=== PATIENT | male | born 1995 ===

== ENCOUNTER 2024-10-02 07:49 | Outpatient (CLI) | payer OTHER, SELFPAY | END 2024-10-02 07:50 | disposition home or self-care (01) | PROVIDERS: PCP Nurse Practitioner Family; Visit Provider Nurse Practitioner Family | DX: R25.2 Cramp and spasm (principal); Z13.220 Encounter for screening for lipoid disorders | CPT/HCPCS: 80053; 80061; 83735 ==

== ENCOUNTER 2025-04-16 15:03 | Outpatient (CLI) | payer OTHER, SELFPAY ==
--- NOTE | 2025-04-16 15:00 | CRLHL7_ITS ---
For Patients: As a result of the Cures Act, medical imaging exams and procedure reports are released immediately into your electronic medical record. You may view this report before your referring provider. If you have questions, please contact your health care provider. Indication: NASAL CONGESTION, HISTORY OF NASAL POLYPS Technique: Performed without IV contrast Comparison: None available Findings: Frontal sinuses: Mild mucosal thickening is present within the inferior frontal sinuses. Ethmoid sinuses: Moderate opacification of 1 of the posterior left ethmoid air cells. Clear right ethmoid sinus. Maxillary sinuses: Mucous retention cyst within the medial right maxillary sinus measures 1.4 cm. Mucosal thickening with heterotopic ossification in the inferior right maxillary sinus. The right-sided sinus drainage pathway is clear. Mucosal thickening and mucous retention cysts throughout the left maxillary sinus with at least moderate opacification of the entire sinus. The sinus drainage pathway is clear. Sphenoid sinuses: Clear, including both sphenoethmoidal recesses. Nasal Cavity: Nicki bullosa within the right middle turbinate measures 1.2 cm. Rightward curvature of the nasal septum with right-sided nasal septal spur. Paradoxical turn of the right inferior nasal turbinate and left middle turbinate. No TMJ abnormalities identified. The visualized portions of the orbits, intracranial contents and upper soft tissue neck are grossly negative. Impression: 1. Bilateral maxillary sinus disease, [id number]. 2. Rightward curvature of the nasal septum. Prominent nicki bullosa right middle turbinate. Please note that all CT scans at this facility use dose modulation, iterative reconstruction, and/or weight-based dosing when appropriate to reduce radiation dose to as low as reasonably achievable. Dictated by Gary Barahona MD @ 04/17/2025 8:49:26 AM (Electronically Signed)
== END 2025-04-16 15:04 | disposition home or self-care (01) ==
LOC: CT 15:04
PROVIDERS: PCP Nurse Practitioner Family; Visit Provider Otolaryngology
DX: R09.81 Nasal congestion (principal); J32.0 Chronic maxillary sinusitis; J34.2 Deviated nasal septum
CPT/HCPCS: 70486